=== PATIENT | female | born 1965 | race American Indian/Alaskan Native ===

== ENCOUNTER 2017-04-08 15:09 | Outpatient (CLI) | payer BC ==
--- NOTE | 2017-04-08 16:03 | XRay Report ---
CHEST TWO VIEWS: 04/08/17 15:09:00 CLINICAL: A palpable lump in the midline over the sternum. COMPARISON: 03/25/14 FINDINGS: Normal heart and pulmonary vasculature.Aortic tortuosity. The lungs are normally expanded and clear.The bones and soft tissues are normal. No sternal lesion or soft tissue mass. IMPRESSION: Normal chest.Recommend further evaluation of the chest wall lump with a bilateral mammogram and ultrasound of the breasts and chest wall if the mammogram is negative.
--- NOTE | 2017-04-09 09:14 | Ultrasound Report ---
THYROID ULTRASOUND:04/08/17 15:09:00 CLINICAL: Thyromegaly and hot flashes. FINDINGS: High-resolution ultrasound demonstrated a normal thyroid. The right lobe measures 4.7 x 1.6 x 1.5cm. The left lobe measures 4.0 x 1.6 x 1.2. The isthmus measures 3.3 mm AP thickness. No thyroid nodule or mass. IMPRESSION: Normal thyroid.
== END 2017-04-08 15:10 | disposition home or self-care (01) ==
LOC: SPVIMAG 15:09
PROVIDERS: ATTEND Family Medicine Adult Medicine
DX: E01.0 Iodine-deficiency related diffuse (endemic) goiter (principal); N95.1 Menopausal and female climacteric states; R22.2 Localized swelling, mass and lump, trunk
CPT/HCPCS: 71020; 76536

== ENCOUNTER 2021-05-09 08:41 | Outpatient (CLI) | payer BC ==
--- NOTE | 2021-06-03 16:03 | Mammography Report ---
DIGITAL SCREENING MAMMOGRAM WITH CAD, 05/09/2021 CLINICAL INFORMATION / INDICATION: Routine screening mammography. TECHNIQUE: Digital bilateral 2D mammography was obtained in the craniocaudal and mediolateral obliqu e projections. This examination was interpreted with the benefit of Computer-Aided Detection analysis . COMPARISON: Prior mammograms 05/28/2020 and 04/02/2017 FINDINGS: Breast Density: The breasts are almost entirely fatty. No dominant mass, suspicious calcifications, or architectural distortion in either breast. There has been no significant change compared with the prior examinations. IMPRESSION: No mammographic evidence of malignancy. Follow up recommendation: Routine yearly BI-RADS Category 1: Negative. A "normal" or negative report should not discourage follow up or biopsy of a clinically significant f inding. A written summary of these findings will be mailed to the patient. The patient will be entered into a mammography reporting system which will generate a reminder letter for the patient's next appointmen t at the appropriate interval. The [employer] recommends yearly mammograms starting at age 40 and continuing as l isaiah as a woman is in good health. Breast MRI is recommended for women with an approximate 20-25% or greater lifetime risk of breast cancer, including women with a strong family history of breast or ova sera cancer or who have been treated for Hodgkin's disease. Signer Name: Greer Cannon MD Signed: 06/03/2021 3:58 PM Workstation Name: [id number]
== END 2021-05-09 08:42 | disposition home or self-care (01) ==
LOC: MAMMO 08:41
PROVIDERS: ATTEND Family Medicine
DX: Z12.31 Encounter for screening mammogram for malignant neoplasm of breast (principal)
CPT/HCPCS: 77067

== ENCOUNTER 2022-05-23 08:59 | Outpatient (CLI) | payer OTHER ==
--- NOTE | 2022-05-23 10:07 | Mammography Report ---
DIGITAL SCREENING MAMMOGRAM WITH CAD, 05/23/2022 CLINICAL INFORMATION / INDICATION: Routine screening mammography. TECHNIQUE: Digital bilateral 2D mammography was obtained in the craniocaudal and mediolateral obliqu e projections. This examination was interpreted with the benefit of Computer-Aided Detection analysis . COMPARISON: 05/09/2021, 04/02/2017 FINDINGS: Breast Density: The breasts are almost entirely fatty. No dominant mass, suspicious calcifications, or architectural distortion in either breast. There has been no significant interval change. IMPRESSION: No mammographic evidence of malignancy. Follow up recommendation: Routine yearly screening mammogram. BI-RADS Category 1: NEGATIVE A "normal" or negative report should not discourage follow up or biopsy of a clinically significant f inding. A written summary of these findings will be mailed to the patient. The patient will be entered into a mammography reporting system which will generate a reminder letter for the patient's next appointmen t at the appropriate interval. The [employer] recommends yearly mammograms starting at age 40 and continuing as l isaiah as a woman is in good health. Breast MRI is recommended for women with an approximate 20-25% or greater lifetime risk of breast cancer, including women with a strong family history of breast or ova sera cancer or who have been treated for Hodgkin's disease. Signer Name: Heber Mota MD Signed: 05/23/2022 10:03 AM Workstation Name: [id number]
== END 2022-05-23 09:00 | disposition home or self-care (01) ==
LOC: MAMMO 08:59
PROVIDERS: ATTEND Obstetrics & Gynecology
DX: Z12.31 Encounter for screening mammogram for malignant neoplasm of breast (principal)
CPT/HCPCS: 77067